=== PATIENT | male | born 1945 | race Caucasian/White ===

== ENCOUNTER 2024-05-24 10:07 | Outpatient (CLI) | payer MEDICARE ==
[2024-05-24 11:57] LABS: Prothrombin Time 12.6 sec (12.0-14.7)
[2024-05-24 11:58] LABS: PTT 26.8 sec (22.9-36.1)
[2024-05-24 12:00] LABS: Anion Gap 16 mmol/L (10-20); BUN (Urea Nitrogen) 19 mg/dL (8.4-25.7); Calc. Creatinine Clearance 0 mL/min (70-130); Carbon Dioxide 28 mmol/L (23-31); Chloride 105 mmol/L (98-107); Estimated GFR 90; Glucose 95 mg/dL (83-110); Potassium 4.4 mmol/L (3.5-5.1); Sodium 145 mmol/L (136-145)
[2024-05-24 12:30] LABS: #Basophils 0.05 10x3/uL (0.0-0.2); %Basophils 0.7 % (0.0-1.0); %Eosinophils 2.6 % (0.0-10.0); %Lymphocytes 20.7 % (21.0-51.0); %Monocytes 9.6 % (0.0-10.0); %Neutrophils 66.3 % (42.0-75.0); Hematocrit 41.7 % (42.0-52.0); Hemoglobin 14.8 g/dL (14.0-18.0); Mean Corpuscular HGB CONC 35.5 g/dL (32.0-36.0); Mean Corpuscular Hemoglobin 35.3 pg (27.0-31.0); Mean Corpuscular Volume 99.5 fL (78.0-98.0); Mean Platelet Volume 10.6 fL (7.4-10.4); Platelet Count 221 10x3/uL (130-400); RBC Distribution Width 13.7 % (11.5-14.5); Red Blood Cell (RBC) Count 4.19 mill/uL (4.70-6.10)
== END 2024-05-24 10:08 | disposition home or self-care (01) ==
LOC: LABBT 10:07
PROVIDERS: ATTEND Urology
DX: Z01.818 Encounter for other preprocedural examination (principal); D40.8 Neoplasm of uncertain behavior of other specified male genital organs
CPT/HCPCS: 80048; 85025; 85610; 85730; 93005; 93010

== ENCOUNTER 2024-06-01 09:37 | Day surgery (SDC) | payer MEDICARE ==
[2024-05-24 10:33] VITALS: BMI 29.2
[2024-06-01] MEDS ORDERED: Vasopressin 20 UNITS/ML VIAL ONE (10:24)
[2024-06-01] MEDS ORDERED: PROPOFOL 20 ML ONE ×2 (11:34→12:22)
[2024-06-01] MEDS ORDERED: Lidocaine 2% PF 5 ML VIAL ONE (11:34)
[2024-06-01] MEDS ORDERED: Lidocaine 1% (PF) 30 ML VIAL ONE (11:38)
[2024-06-01] MEDS ORDERED: Bacitracin Zinc Ointment 30 gm TUBE ONE (11:38)
[2024-06-01] MEDS ORDERED: Sodium Chloride 0.9% 100 ML ONE (11:45)
[2024-06-01] MEDS ORDERED: CEFAZOLIN 2 GM VIAL ONE (11:45)
[2024-06-01] MEDS ORDERED: Dexamethasone 4 mg/ml Vial ONE (12:03)
[2024-06-01] MEDS ORDERED: fentaNYL PF 100 MCG/2 ML SYRINGE ONE (12:03)
[2024-06-01] MEDS ORDERED: Ondansetron PF 4 MG/2 ML Vial ONE (12:03)
== END 2024-06-01 14:50 | disposition home or self-care (01) ==
LOC: SDC 09:37
PROVIDERS: ATTEND Urology
PROC: 0VB Male Reproductive System, Excision (ICD-10-PCS; principal; 2024-06-01)
DX: D40.8 Neoplasm of uncertain behavior of other specified male genital organs (principal); I25.10 Atherosclerotic heart disease of native coronary artery without angina pectoris; I10 Essential (primary) hypertension; E78.00 Pure hypercholesterolemia, unspecified; E03.9 Hypothyroidism, unspecified; G43.909 Migraine, unspecified, not intractable, without status migrainosus; G20.A1 Parkinson's disease without dyskinesia, without mention of fluctuations; Z79.890 Hormone replacement therapy; Z79.899 Other long term (current) drug therapy
CPT/HCPCS: 11421; J1100; J2001 ×2; J2405; J2704; 88305